=== PATIENT | female | born 1995 | race Caucasian/White ===

== ENCOUNTER 2017-10-05 19:27 | Emergency (ER) | payer OTHER ==
[~2017-10-05] VITALS: Ht 162.6 cm; Wt 52.6 kg
[2017-10-05] MEDS ORDERED: HYDROCODONE-AP1 EAC6 PO (20:46)
[2017-10-05] MEDS ORDERED: ZOFRAN ODT4 MG PO (21:03)
[2017-10-05 21:40] VITALS: BP 104/68
== END 2017-10-05 21:40 | disposition home or self-care (01) ==
LOC: M.ERS 19:27
DX: M25.532 Pain in left wrist (principal); M25.562 Pain in left knee; Z88.1 Allergy status to other antibiotic agents; Z88.6 Allergy status to analgesic agent; W01.0XXA Fall on same level from slipping, tripping and stumbling without subsequent striking against object, initial encounter; Y93.89 Activity, other specified; Y92.89 Other specified places as the place of occurrence of the external cause; Y99.0 Civilian activity done for income or pay